=== PATIENT | male | born 1985 | race Caucasian/White ===

== ENCOUNTER 2016-11-26 16:52 | Emergency (ER) | payer BC, OTHER ==
[2016-11-26 16:59] VITALS: BMI 31.4
--- NOTE | 2016-11-26 17:16 | DR.GENAD ---
HPI - PCP Primary Care Physician: Asif - Complaint/Symptoms Chief Complaint Doctors Comments: Patient states that he has a history of hypertension and was on medication for two years and was taken off. He BP has bween in the 140s systolic and his pcp took him off medication. Recently had BP checked and it was 170 systolic and today systolic is 200. He denies alcohol use but dips. He wears glasses and vision has not changed. Last eye exam was two months ago. Today admits to a headache. Chief Complaint:: Pt states he has high blood pressure but is not on any medication and he is also c/o headache. - Source History Provided: Patient - Mode of Arrival Mode of Arrival: Ambulatory - Timing Onset of Chief Complaint: 11/26/16 PMH - PMH Past Medical History: Yes Past Medical History: Gout Past Surgical History: No Surgical History: No History - Family History History of Family Medical Conditions: Yes Family Medical History: [place] - Social History Does patient currently use any type of tobacco product: Yes Have you used tobacco products in the last 12 months: Yes Type of Tobacco Use: Smokeless Does any household member use tobacco: No Alcohol Use: None Do you use any recreational Drugs:: No Lives With: Family Lives Where: Home - infectious screening In the last 2 months have you had wt loss of >10#?: NO Have you had fever, night sweats or hemotysis?: No Have you traveled outside the country in the last 6 months?: No Isolation: Standard ROS - Review of Systems Constitutional: No Symptoms Reported Eyes: No Symptoms Reported ENTM: No Symptoms Reported Respiratoy: No Symptoms Reported Cardiovascular: No Symptoms Reported Gastrointestinal/Abdominal: No Symptoms Reported Genitourinary: No Symptoms Reported Neurological: No Symptoms Reported Musculoskeletal: No Symptoms Reported Integumentary: No Symptoms Reported Hematologic/Lymphatic: No Symptoms Reported Endocrine: No Symptoms Reported Psychiatric: No Symptoms Reported All Other Systems: Reviewed and Negative PE - Vital Signs Vitals: Temperature 98.2 F Pulse Rate [Left Brachial] 72 Pulse Rate 83 Respiratory Rate 18 Blood Pressure [Left Arm] 159/94 Blood Pressure 187/113 O2 Sat by Pulse Oximetry 98 - General Limitations: No Limitations General Appearance: Alert, In No Apparent Distress - Head Head Exam: Normal Inspection, Atraumatic - Eyes Eye exam: Normal Appearance, PERRL, EOMI - ENT ENT Exam: Normal Exam, Normal Oropharynx TM/Canal Exam: Bilateral Normal Nose Exam: Normal Nose Exam Mouth Exam: Normal Inspection Throat Exam: Normal Inspection - Neck Neck Exam: Normal Inspection - Chest Chest Inspection: Normal Inspection - Respiratory Respiratory Exam: Normal Lung Sounds Bilat Respiratory Exam: Bilateral Clear to Auscultation - Cardiovascular Cardiovascular Exam: Regular Rate, Normal Rhythm - Abdominal Exam Abdominal Exam: Normal Inspection, Normal Bowel Sounds Abdominal Tenderness: negative: RUQ, RLQ, LUQ, LLQ, Epigastrium, Suprapubic, Diffuse, Mild, Moderate, Severe, Other - Extremities Extremities Exam: Normal Inspection - Back Back Exam: Normal Inspection - Neurologic Neurological Exam: Alert, Oriented X3, CN II-XII Intact - Psychiatric Psychiatric Exam: Normal Affect - Skin Skin Exam: Warm, Intact Course - Treatment Treatment: Clonidine 0.2mg decreased to 159/94 - Reevaluation 1st: Improved - Diagnosis Discharge Problem: Hypertensive urgency - Discharge Plan Condition: Stable - Follow ups/Referrals Follow ups/Referrals: Agusto Gold [Primary Care Provider] - 3 days - Instructions
[2016-11-26] MEDS ORDERED: CATAPRES TAB 0.2 MG PO ONE (17:17)
[2016-11-26] MEDS ORDERED: CATAPRES TAB 0.2 MG ONE (17:18)
[2016-11-26 17:55] VITALS: BP 159/94
== END 2016-11-26 18:05 | disposition home or self-care (01) ==
LOC: ER 17:03
DX: I16.0 Hypertensive urgency (principal)
CPT/HCPCS: 99282

== ENCOUNTER 2020-06-07 15:22 | Inpatient (IN) ==
[2020-06-07 15:50] VITALS: BMI 30.8
--- NOTE | 2020-06-07 15:56 | DR.URIAD ---
HPI Time Seen Time Seen by Provider: 06/07/20 15:54 PCP Primary Care Physician: Rebecca Monroe Complaint Chief Complaint:: Patient was diagnosed with Covid last Thursday. The past three days his oxygen has been dropping. He has a home meter, and states that his oxygen has been in the upper 80s even at rest. He states that it became very difficult to breath today, so he called EMS. Source History Provided: Patient Mode of Arrival Mode of Arrival: Stretcher Timing Onset of Chief Complaint: 06/07/20 PMH PMH Past Medical History: Yes Past Medical History: Gout and Hypertension Past Surgical History: No Surgical History: No History Family History History of Family Medical Conditions: Yes Family Medical History: [place] Social History Does patient currently use any type of tobacco product: No Have you used tobacco products in the last 12 months: No Type of Tobacco Use: None Does any household member use tobacco: No Alcohol Use: None Do you use any recreational Drugs:: No Lives With: Family Lives Where: Home Infectious screening In the last 2 months have you had wt loss of >10#?: NO Have you had fever, night sweats or hemotysis?: No Have you traveled outside the country in the last 6 months?: No Isolation: Droplet PE Vital Signs Vitals: Temperature 100.1 F Pulse Rate 80 Respiratory Rate 22 Blood Pressure [Left Arm] 159/94 Blood Pressure 123/81 O2 Sat by Pulse Oximetry 96 ROR Labs Reviewed Result Diagrams: 06/07/20 16:44 06/07/20 16:44 Laboratory: WBC 9.7 X10^3/uL (3.6-10.0) 06/07/20 16:44 RBC 4.66 X10^6/uL (4.7-6.0) L 06/07/20 16:44 Hgb 15.1 g/dL (13.5-18.0) 06/07/20 16:44 Hct 43.9 % (42.0-54.0) 06/07/20 16:44 MCV 94.4 fL (80.0-100.0) 06/07/20 16:44 MCH 32.3 pg (27.0-34.0) 06/07/20 16:44 MCHC 34.3 g/dL (33.0-35.0) 06/07/20 16:44 RDW 13.2 % (11.6-16.5) 06/07/20 16:44 Plt Count 238 X10^3/uL (150.0-450.0) 06/07/20 16:44 MPV 6.5 fL (7.4-11.0) L 06/07/20 16:44 Neut % (Auto) 76.1 % (42.0-75.0) H 06/07/20 16:44 Lymph % (Auto) 14.9 % (21.0-51.0) L 06/07/20 16:44 [place] % (Auto) 7.9 % (0.0-13.0) 06/07/20 16:44 Eos % (Auto) 0.7 % (0.9-2.9) L 06/07/20 16:44 Baso % (Auto) 0.4 % (0.2-1.0) 06/07/20 16:44 Neut # (Auto) 7.4 x10^3/uL (2.2-4.8) H 06/07/20 16:44 Lymph # (Auto) 1.4 X10^3/uL (1.3-2.9) 06/07/20 16:44 [place] # (Auto) 0.8 x10^3/uL (0.3-0.8) 06/07/20 16:44 Eos # (Auto) 0.1 x10^3/uL (0.0-0.2) 06/07/20 16:44 Baso # (Auto) 0.0 X10^3/uL (0.0-0.1) 06/07/20 16:44 Absolute Nucleated RBC 0.1 /100WBC 06/07/20 16:44 Sample Site Left radial 06/07/20 18:11 ABG pH 7.520 (7.35-7.45) H 06/07/20 18:11 ABG pCO2 29.0 mmHg (35.0-45.0) L 06/07/20 18:11 ABG pO2 124.0 mmHg (80.0-100.0) H 06/07/20 18:11 ABG HCO3 23.7 mmol/L (22-26) 06/07/20 18:11 ABG O2 Saturation 99.0 % (90-100) 06/07/20 18:11 ABG Base Excess 1.6 mmol/L (-2.0-2.0) 06/07/20 18:11 Juan José Test Pos 06/07/20 18:11 A-a Gradient -11.0 mmHg 06/07/20 18:11 FiO2 21.0 06/07/20 18:11 Blood Gas Comments Jhoana well cb 06/07/20 18:11 Sodium 136 mmol/L (136-145) 06/07/20 16:44 Corrected Sodium TNP 06/07/20 16:44 Potassium 4.6 mmol/L (3.5-5.1) 06/07/20 16:44 Chloride 98 mmol/L (98-107) 06/07/20 16:44 Carbon Dioxide 27.0 mmol/L (21-32) 06/07/20 16:44 BUN 24 mg/dL (7-18) H 06/07/20 16:44 Creatinine 1.38 mg/dL (0.70-1.30) H 06/07/20 16:44 Est GFR (MDRD) Af Amer > 60 (>60) 06/07/20 16:44 Est GFR (MDRD) Non-Af > 60 (>60) 06/07/20 16:44 Glucose 100 mg/dL (65-99) H 06/07/20 16:44 Calcium 9.4 mg/dL (8.5-10.1) 06/07/20 16:44 Corrected Calcium 10.2 mg/dL (8.5-10.1) H 06/07/20 16:44 Ferritin 1940 ng/mL (26-388) H 06/07/20 16:44 Total Bilirubin 0.70 mg/dL (0.2-1.0) 06/07/20 16:44 AST 28 Units/L (15-37) 06/07/20 16:44 ALT 71 Units/L (12-78) 06/07/20 16:44 Alkaline Phosphatase 58 Units/L (46-116) 06/07/20 16:44 Total Protein 8.2 g/dL (6.4-8.2) 06/07/20 16:44 Albumin 3.0 g/dL (3.4-5.0) L 06/07/20 16:44 Globulin 5.2 g/dL (2.5-4.5) H 06/07/20 16:44 Albumin/Globulin Ratio 0.6 Ratio (1.1-2.1) L 06/07/20 16:44 Opioid Opioid Risk Tool Total: 0 Total Score Risk Category: Low Risk Copyright: Jerrod SMITH predicting aberrant behaviors Instructions Forms: Precautions for COVID19 Patient Portal Social Distancing
[2020-06-07 16:59] LABS: BASOPHILS % (AUTO) 0.4 % (0.2-1.0); EOSINOPHILS # (AUTO) 0.1 x10^3/uL (0.0-0.2); EOSINOPHILS % (AUTO) 0.7 % (0.9-2.9); HEMATOCRIT 43.9 % (42.0-54.0); HEMOGLOBIN 15.1 g/dL (13.5-18.0); LYMPHOCYTES # (AUTO) 1.4 X10^3/uL (1.3-2.9); LYMPHOCYTES % (AUTO) 14.9 % (21.0-51.0); MEAN CORPUSCULAR HEMOGLOBIN 32.3 pg (27.0-34.0); MEAN CORPUSCULAR HGB CONC 34.3 g/dL (33.0-35.0); MEAN CORPUSCULAR VOLUME 94.4 fL (80.0-100.0); MEAN PLATELET VOLUME 6.5 fL (7.4-11.0); MONOCYTES # (AUTO) 0.8 x10^3/uL (0.3-0.8); MONOCYTES % (AUTO) 7.9 % (0.0-13.0); NEUTROPHILS # (AUTO) 7.4 x10^3/uL (2.2-4.8); NEUTROPHILS % (AUTO) 76.1 % (42.0-75.0); PLATELET COUNT 238 X10^3/uL (150.0-450.0); RED BLOOD COUNT 4.66 X10^6/uL (4.7-6.0); RED CELL DISTRIBUTION WIDTH 13.2 % (11.6-16.5); WHITE BLOOD COUNT 9.7 X10^3/uL (3.6-10.0)
--- NOTE | 2020-06-07 17:08 | RAD ---
HISTORYSOB, COVID POSITIVESTUDYCHEST, 1 VIEWCOMPARISONNoneFINDINGSThe heart is mildly enlarged. The pulmonary vessels are slightly prominent centrally. There are some hazy perihilar and bibasilar opacities. No effusion is seen.IMPRESSIONMild cardiomegaly and minimal central pulmonary congestion.Hazy perihilar and bibasilar infiltrates which probably represents multisegmental bronchopneumonia.Electronically signed by: YADIRA HURTADO (Jun 07, 2020 17:06:46)
[2020-06-07] MEDS ORDERED: DECADRON INJ ONE (17:19)
[2020-06-07] MEDS ORDERED: TORADOL 30 MG VIAL ONE (17:20)
[2020-06-07] MEDS: TORADOL 30 MG VIAL IVP ONE (17:26)
[2020-06-07] MEDS: DECADRON INJ IV ONE (17:26)
[2020-06-07] MEDS: NS 1000 ML 1,000 ML IV SCH (17:28)
[2020-06-07] MEDS ORDERED: NS 1000 ML 1,000 ML ONE (17:30)
[2020-06-07 17:54] LABS: ALANINE AMINOTRANSFERASE 71 Units/L (12-78); ALKALINE PHOSPHATASE 58 Units/L (46-116); ASPARTATE AMINO TRANSFERASE 28 Units/L (15-37); BLOOD UREA NITROGEN 24 mg/dL (7-18); CALCIUM 9.4 mg/dL (8.5-10.1); CHLORIDE 98 mmol/L (98-107); COR CA(FOR HYPOALB) 10.2 mg/dL (8.5-10.1); CREATININE 1.38 mg/dL (0.70-1.30); SODIUM 136 mmol/L (136-145); TOTAL PROTEIN 8.2 g/dL (6.4-8.2); eGFR NON BLACK RACES > 60 (>60)
[2020-06-07 18:19] LABS: ABG ALLEN TEST POS; ABG BASE EXCESS 1.6 mmol/L (-2.0-2.0); ABG HCO3 23.7 mmol/L (22-26)
[2020-06-07] MEDS ORDERED: LEVOPHED INJ 8 MG in D5W 250 ML IV 242 ML IV PRN (18:30)
[2020-06-07] MEDS ORDERED: ROCEPHIN 1 GRAM IV PREMIX 1 G/50 ML IV.SOLN. IV ONE (19:32)
[2020-06-07] MEDS: ROCEPHIN 1 GRAM IV PREMIX 1 G/50 ML IV.SOLN. IV SCH (19:37)
[2020-06-07] MEDS ORDERED: REMDESIVIR 200 MG in NS 250 ML IV 250 ML IV SCH (20:00)
[2020-06-07] MEDS: DUONEB 0.5 MG/3 MG (3 mL) NEB SCH (22:55)
[2020-06-07] MEDS: PULMICORT NEB TX 0.5 MG NEB SCH (22:55)
[2020-06-08] MEDS ORDERED: ZOSYN VIAL 3.375 GRAMS IV ONE (01:00)
[2020-06-08] MEDS ORDERED: REMDESIVIR IV ONE (01:00)
[2020-06-08] MEDS ORDERED: NS 100 ML IV 100 ML IV ONE (01:03)
[2020-06-08] MEDS ORDERED: NS 100 ML IV + SPIKE MINIBAG* 100 ML IV ONE (01:06)
[2020-06-08] MEDS: ASCORBIC ACID INJ MULTI-DOSE VIAL 1,500 MG in NS 100 ML IV 100 ML IV SCH ×3 (01:59→09:12)
[2020-06-08] MEDS: ROBITUSSIN DM PO SCH ×5 (02:00→21:30)
[2020-06-08] MEDS: ZINC SULFATE PO SCH ×3 (02:00→21:30)
[2020-06-08] MEDS: LOVENOX INJ 30 MG SYR SC SCH ×3 (02:00→21:30)
[2020-06-08] MEDS: ZOSYN VIAL 3.375 GRAMS 3.375 G in NS 100 ML IV + SPIKE MINIBAG* 100 ML IV SCH ×4 (02:01→21:30)
[2020-06-08] MEDS: NS 1000 ML 1,000 ML IV SCH ×4 (03:30→21:52)
[2020-06-08 06:02] LABS: ALANINE AMINOTRANSFERASE 74 Units/L (12-78); ALBUMIN 2.5 g/dL (3.4-5.0); ALKALINE PHOSPHATASE 57 Units/L (46-116); ASPARTATE AMINO TRANSFERASE 25 Units/L (15-37); BLOOD UREA NITROGEN 29 mg/dL (7-18); CARBON DIOXIDE 25.1 mmol/L (21-32); CHLORIDE 102 mmol/L (98-107); COR CA(FOR HYPOALB) 10.2 mg/dL (8.5-10.1); COR NA(FOR HYPERGLY) 141 mmol/L (136-145); CREATININE 1.28 mg/dL (0.70-1.30); SODIUM 139 mmol/L (136-145); TOTAL PROTEIN 7.4 g/dL (6.4-8.2); eGFR NON BLACK RACES > 60 (>60)
[2020-06-08 06:06] LABS: BASOPHILS % (AUTO) 0.2 % (0.2-1.0); EOSINOPHILS % (AUTO) 0.1 % (0.9-2.9); HEMATOCRIT 38.1 % (42.0-54.0); HEMOGLOBIN 13.5 g/dL (13.5-18.0); LYMPHOCYTES # (AUTO) 0.8 X10^3/uL (1.3-2.9); MEAN CORPUSCULAR HGB CONC 35.4 g/dL (33.0-35.0); MEAN PLATELET VOLUME 6.6 fL (7.4-11.0); MONOCYTES # (AUTO) 0.4 x10^3/uL (0.3-0.8); MONOCYTES % (AUTO) 6.9 % (0.0-13.0); NEUTROPHILS # (AUTO) 4.3 x10^3/uL (2.2-4.8); NEUTROPHILS % (AUTO) 78.8 % (42.0-75.0); PLATELET COUNT 220 X10^3/uL (150.0-450.0); RED BLOOD COUNT 3.97 X10^6/uL (4.7-6.0); WHITE BLOOD COUNT 5.4 X10^3/uL (3.6-10.0)
[2020-06-08 06:22] LABS: ABG BASE EXCESS -1.1 mmol/L (-2.0-2.0); ABG HCO3 22.2 mmol/L (22-26)
[2020-06-08 06:23] LABS: ABG ALLEN TEST POS
[2020-06-08] MEDS: DUONEB 0.5 MG/3 MG (3 mL) NEB SCH ×3 (06:24→21:45)
[2020-06-08] MEDS ORDERED: VITAMIN D (1.25MG) PO SCH (09:00)
[2020-06-08] MEDS ORDERED: VITAMIN A PO SCH (09:00)
[2020-06-08] MEDS ORDERED: INVANZ INJ 1 GM VIAL 1 GM in NS 100 ML IV + SPIKE MINIBAG* 100 ML IV SCH (09:00)
[2020-06-08] MEDS ORDERED: DECADRON TAB PO SCH (09:00)
[2020-06-08] MEDS: VSL#3 PO SCH (09:15)
[2020-06-08] MEDS: TRICOR TAB 160 MG PO SCH (09:16)
[2020-06-08] MEDS: PULMICORT NEB TX 0.5 MG NEB SCH ×2 (09:40→21:45)
[2020-06-08] MEDS: ROCEPHIN 1 GRAM IV PREMIX 1 G/50 ML IV.SOLN. IV SCH (10:00)
[2020-06-08] MEDS: REMDESIVIR 100 MG in NS 250 ML IV 250 ML IV SCH (10:17)
--- NOTE | 2020-06-08 10:23 | DR.H&P ---
H&P - History & Physical for Day of: H&P Date: 06/07/20 - Chief Complaint Chief Complaint: FEVER, COUGH, SOB, WEAKNESS, HYPOXIA - History of Present Illness History of Present Illness: IS A 35 YEAR OLD PATIENT OF [employer]. HE PRESENTED TO THE ER WITH COMPLAINTS OF FEVER, SHORTNESS OF BREATH, NON- PRODUCTIVE COUGH, HYPOXIA, AND WEAKNESS. HE REPORTS THAT HIS OXYGEN SATURATIONS AT HOME HAVE BEEN AROUND 87-90% ON ROOM AIR. HE TESTED POSITIVE FOR COVID-19 ON 05/28/20. HE WAS TREATED WITH A Z-PACK AND A MEDROL DOSEPACK LAST WEEK, BUT DENIES IMPROVEMENT IN SYMPTOMS DESPITE COMPLIANCE WITH MEDICATIONS. AUSCULTATION OF LUNG DALY REVEALED SCATTERED WHEEZING. ON ARRIVAL, HIS VITALS WERE 100.1-80-18-90%RA-123/81. LABS WERE OBTAINED. ABNORMAL LAB VALUES INCLUDED THE FOLLOWING: RBC 4.66, BUN 24, CREATININE 1.38, GLUCOSE 100, FERRITIN 1940, ALBUMIN 3.0, GLOBULIN 5.2. BLOOD CULTURES WERE SET UP. A CHEST XRAY WAS OBTAINED AND REVEALED: Mild cardiomegaly and minimal central pulmonary congestion. Hazy perihilar and bibasilar infiltrates which probably represents multisegmental bronchopneumonia. HE WAS GIVEN ROCEPHIN 1G IV X 1, DECADRON 6MG IV X 1, AND TORADOL 30MG IV X 1 IN THE ER. HE DENIED IMPROVEMENT IN SYMPTOMS. HE WAS ADMI TTED FOR FURTHER EVALUATION AND TREATMENT OF PNEUMONIA DUE TO COVID-19 AND HYPOXIA. HE WAS STARTED ON NS AT 50 ML/HR, LEVAQUIN 500MG IV DAILY, ZOSYN 3.375G IV TID, SOLU-MEDROL 80MG IV Q8H, REMDESIVIR 200MG IV X 1 DOSE, THEN 100MG IV DAILY, ROBITUSSIN DM 10ML PO QID, TUSSIONEX 5ML PO Q12H PRN, LOVENOX 30MG SC BID, DUONEBS TID, PULMICORT NEBS BID, TRICOR 160MG PO DAILY, AND ZINC 220MG PO BID. OTHERWISE, WE PLAN TO FOLLOW UP WITH AM LABS AND CHEST XRAY AND CONTINUE TO MONITOR. TIME SPENT ON CLINICAL ASSESSMENT, REVIEWING LABS AND IMAGING, DECISION MAKING, AND DOCUMENTATION GREATER THAN 75 MINUTES. - Past Medical History Past Medical History: Hypertension, Gout - Past Surgical History Surgical History: No History - Family History Family Medical History: Diabetes Mellitus, Heart Failure - Social History Does patient currently use any type of tobacco product: No Have you used tobacco products in the last 12 months: No Type of Tobacco Use: None Does any household member use tobacco: No Alcohol Use: None Drug Use: None - Medications Home Medications: No Known Drug Allergies Allergy (Verified 06/07/20 15:23) CONTINUE taking the following medications allopurinol 300 mg PO BID 06/08/20 [History] diphenoxylate-atropine 1 tab PO TID PRN 06/08/20 [History] lisinopril 20 mg PO DAILY 06/08/20 [History] ondansetron HCl 4 mg PO Q6H PRN 06/08/20 [History] - Review of Systems Constitutional: Fever, Weakness Eyes: No Symptoms Reported ENT: No Symptoms Reported Respiratory: See HPI, Cough, Shortness of Breath, Wheezing Cardiovascular: No Symptoms Reported Gastrointestinal: No Symptoms Reported Genitourinary: No Symptoms Reported Musculoskeletal: No Symptoms Reported Skin: No Symptoms Reported Neurological: Weakness - Physical Exam Vital Signs: Temperature 97.5 F Pulse Rate [Apical] 69 Pulse Rate 52 Respiratory Rate 20 Blood Pressure [Left Arm] 123/68 Blood Pressure 126/65 O2 Sat by Pulse Oximetry 97 Oriented: Normal Eyes: Normal Ear: Normal Nose: Normal Throat: Normal Respiratory: Diminished Throughout, Wheezes Throughout Cardiovascular: Normal : Normal Auscultation: Bowel Sounds: Normal Palpation: Normal Tenderness: Normal Skin: Normal Musculoskeletal: Normal Psychiatric: Normal Mood Description: Calm Affect: Normal Speech Pattern: Clear - Assessment/Plan (1) Pneumonia Qualifiers: Aspiration pneumonia type: unspecified Laterality: bilateral Lung location: lower lobe of lung Status: Acute Plan: ADMIT, NS AT 50 ML/HR, LEVAQUIN 500MG IV DAILY, ZOSYN 3.375G IV TID, SOLU- MEDROL 80MG IV Q8H, REMDESIVIR 200MG IV X 1 DOSE, THEN 100MG IV DAILY, ROBITUSSIN DM 10ML PO QID, TUSSIONEX 5ML PO Q12H PRN, LOVENOX 30MG SC BID, DUONEBS TID, PULMICORT NEBS BID, TRICOR 160MG PO DAILY, AND ZINC 220MG PO BID (2) COVID-19 Status: Acute (3) Hypoxia Status: Acute - Allergies Allergies/Adverse Reactions: Allergies Allergy/AdvReac Type Severity Reaction Status Date / Time No Known Drug Allergies Allergy Verified 06/07/20 15:23
[2020-06-08 10:30] LABS: CKMB % 1.6 % (<4); CREATINE KINASE 61 Units/L (39-308); CREATINE KINASE MB < 1.0 ng/mL (0-4.0); TROPONIN I < 0.02 ng/mL (0-1.5)
[2020-06-08] MEDS ORDERED: LOMOTIL PO PRN (10:54)
[2020-06-08] MEDS ORDERED: ZESTRIL TAB 20 MG ONE (11:16)
[2020-06-08] MEDS: ZYLOPRIM PO SCH ×2 (11:25→21:30)
[2020-06-08] MEDS: LEVAQUIN PREMIX IV 500 MG 500 MG/100 ML BAG IV SCH (11:26)
[2020-06-08] MEDS: ZESTRIL TAB 20 MG PO SCH (11:26)
--- NOTE | 2020-06-08 12:28 | RAD ---
HISTORYSOBSTUDYCHEST, 1 [id number]/22/2020FINDINGSBorderline heart size. There is unchanged elevation of the right diap hragm. There are again seen patchy bibasal ground-glass radiopacities overall unchanged since prior s tudy. No effusion or pneumothorax.IMPRESSIONPersistent bibasal infiltrates with confluent areas and i nfiltrate at left midlung zone. No effusions or pneumothoraxElectronically signed by: Wanda Stroud (Oc t 2019 12:27:23)
[2020-06-08] MEDS ORDERED: ACTEMRA 400 MG in NS 100 ML IV 80 ML IV NR (12:30)
[2020-06-08 12:31] LABS: BILIRUBIN,URINE NEGATIVE (NEGATIVE); BLOOD/HEMOGLOBIN,URINE NEGATIVE (NEGATIVE); GLUCOSE, URINE NEGATIVE (NEGATIVE); KETONES,URINE NEGATIVE (NEGATIVE); LEUKOCYTE ESTERASE ,URINE NEGATIVE (NEGATIVE); NITRITES,URINE NEGATIVE (NEGATIVE); PROTEIN,URINE 2+ (NEGATIVE); UROBILINOGEN,URINE NORMAL (NORMAL)
[2020-06-08 12:43] LABS: APPEARANCE,URINE CLEAR (CLEAR); BACTERIA,URINE TRACE /HPF (NEGATIVE); COLOR,URINE YELLOW (YELLOW); RBC,URINE 0-2 /HPF (0-3); SQUAMOUS EPITHELIAL CELL,UR RARE /HPF (NEGATIVE)
[2020-06-08] MEDS ORDERED: SOLU-Medrol 40 MG VIAL ONE (12:57)
[2020-06-08] MEDS: SOLU-Medrol 40 MG VIAL IVP SCH ×2 (13:01→21:30)
[2020-06-09] MEDS: NS 1000 ML 1,000 ML IV SCH ×2 (05:13→21:17)
[2020-06-09 05:22] LABS: BASOPHILS % (AUTO) 0.1 % (0.2-1.0); HEMATOCRIT 40.1 % (42.0-54.0); HEMOGLOBIN 13.6 g/dL (13.5-18.0); LYMPHOCYTES # (AUTO) 0.9 X10^3/uL (1.3-2.9); LYMPHOCYTES % (AUTO) 6.8 % (21.0-51.0); MEAN CORPUSCULAR HEMOGLOBIN 32.1 pg (27.0-34.0); MEAN CORPUSCULAR HGB CONC 33.8 g/dL (33.0-35.0); MEAN CORPUSCULAR VOLUME 94.8 fL (80.0-100.0); MEAN PLATELET VOLUME 6.9 fL (7.4-11.0); MONOCYTES # (AUTO) 0.5 x10^3/uL (0.3-0.8); MONOCYTES % (AUTO) 3.5 % (0.0-13.0); NEUTROPHILS # (AUTO) 11.6 x10^3/uL (2.2-4.8); NEUTROPHILS % (AUTO) 89.6 % (42.0-75.0); PLATELET COUNT 285 X10^3/uL (150.0-450.0); RED BLOOD COUNT 4.23 X10^6/uL (4.7-6.0); RED CELL DISTRIBUTION WIDTH 13.2 % (11.6-16.5); WHITE BLOOD COUNT 12.9 X10^3/uL (3.6-10.0)
[2020-06-09] MEDS: SOLU-Medrol 40 MG VIAL IVP SCH ×3 (05:30→21:18)
[2020-06-09] MEDS: ZOSYN VIAL 3.375 GRAMS 3.375 G in NS 100 ML IV + SPIKE MINIBAG* 100 ML IV SCH ×3 (05:30→21:36)
[2020-06-09 05:37] LABS: ALANINE AMINOTRANSFERASE 87 Units/L (12-78); ALBUMIN 2.7 g/dL (3.4-5.0); ALKALINE PHOSPHATASE 74 Units/L (46-116); BLOOD UREA NITROGEN 19 mg/dL (7-18); CALCIUM 9.2 mg/dL (8.5-10.1); CARBON DIOXIDE 25.9 mmol/L (21-32); CHLORIDE 105 mmol/L (98-107); COR CA(FOR HYPOALB) 10.2 mg/dL (8.5-10.1); COR NA(FOR HYPERGLY) 142 mmol/L (136-145); CREATININE 1.24 mg/dL (0.70-1.30); SODIUM 141 mmol/L (136-145); TOTAL PROTEIN 7.9 g/dL (6.4-8.2); eGFR NON BLACK RACES > 60 (>60)
[2020-06-09 05:59] LABS: ASPARTATE AMINO TRANSFERASE 18 Units/L (15-37)
--- NOTE | 2020-06-09 06:13 | RAD ---
HISTORYSOB, PNEUMONIA, COVID-19STUDYCHEST, 1 [id number]/23/2020.TECHNIQUEAP view of the chestFINDINGSCardiac and mediastinal contours are stable. Improved left base airspace disease. Stable right base airspace disease. No large pleural effusion. No pneumothorax.IMPRESSIONImproved left base airspace disease. Otherwise stable.Electronically signed by: [place] Lindsay (Jun 09, 2020 06:12:00)
[2020-06-09] MEDS: DUONEB 0.5 MG/3 MG (3 mL) NEB SCH ×3 (06:36→21:10)
[2020-06-09] MEDS ORDERED: ZESTRIL TAB 20 MG ONE (08:41)
[2020-06-09] MEDS: ZESTRIL TAB 20 MG PO SCH (08:46)
[2020-06-09] MEDS: ROBITUSSIN DM PO SCH ×4 (08:46→21:18)
[2020-06-09] MEDS: LEVAQUIN PREMIX IV 500 MG 500 MG/100 ML BAG IV SCH (08:46)
[2020-06-09] MEDS: TRICOR TAB 160 MG PO SCH (08:47)
[2020-06-09] MEDS: ZYLOPRIM PO SCH ×2 (08:47→21:18)
[2020-06-09] MEDS: VITAMIN D3 125 mcg (5,000 UNITS) PO SCH (08:48)
[2020-06-09] MEDS: ZINC SULFATE PO SCH ×2 (08:48→21:19)
[2020-06-09] MEDS: LOVENOX INJ 30 MG SYR SC SCH ×2 (08:48→21:18)
[2020-06-09] MEDS: VSL#3 PO SCH (08:49)
[2020-06-09] MEDS ORDERED: VITAMIN A PO SCH (09:00)
[2020-06-09] MEDS: PULMICORT NEB TX 0.5 MG NEB SCH ×2 (09:34→21:10)
[2020-06-09] MEDS: REMDESIVIR 100 MG in NS 250 ML IV 250 ML IV SCH (11:13)
--- NOTE | 2020-06-09 11:18 | PCM.PROG ---
Progress Note Progress Note for Day of Date of Exam: 06/09/20 Subjective Subjective: PT IS A 35 Y/O M ADMITTED FOR COVID19 PNEUMONIA(POSITIVE 05/29). THIS MORNING HE REPORTS FEELING A LITTLE BETTER. HE IS CURRENTLY ON 3L NC SUPPLEMENTAL OXYGEN. LABS/IMAGING:WBC 12.9, HGB 13.6, PLT 285, NA 141, K 4.2, CR 1.24, GLUC 162, CRP 103>57, ECHO EF 60%, CXR:IMPROVED LEFT BASE AIRSPACE DISEASE, OTHERWISE STABLE. HIS TREATMENT COURSE INCLUDES:NS@50 ML/HR, LEVAQUIN 500MG IV DAILY, ZOSYN 3.375G IV TID, SOLU-MEDROL 80MG IV Q8H, REMDESIVIR 200MG IV X 1 DOSE, THEN 100MG IV DAILY, ROBITUSSIN DM 10ML PO QID, TUSSIONEX 5ML PO Q12H PRN, LOVENOX 30MG SC BID, DUONEBS TID, PULMICORT NEBS BID, TRICOR 160MG PO DAILY, AND ZINC 220MG PO BID. WILL CONTINUE TO WEAN OFF SUPPLEMENTAL O2 TOLERATED. CONTINUE TO MONITOR AND FOLLOW UP LABS/IMAGING IN THE MORNING. Past Medical Family Social History Past Med/Fam/Surg Hx: No changes since H&P Allergies: Allergies No Known Drug Allergies Allergy (Verified 06/07/20 15:23) Review of Systems ROS: No change since H&P Vital Signs and I&O's Vital Signs: Temperature 97.9 F Pulse Rate [Apical] 99 Pulse Rate 93 Respiratory Rate 20 Blood Pressure [Left Arm] 133/81 Blood Pressure 126/65 O2 Sat by Pulse Oximetry 99 Intake and Output: Intake & Output 06/06/20 06/07/20 06/08/20 06/09/20 23:59 23:59 23:59 23:59 Intake Total 120 / 120 4744 / 4744 802 / 802 Balance 120 / 120 4744 / 4744 802 / 802 Physical Exam Oriented: Normal Eyes: Normal Ear: Normal Nose: Normal Throat: Normal Respiratory: Diminished Cardiovascular: Normal : Normal Auscultation: Bowel Sounds: Normal Tenderness: Normal Skin: Normal Musculoskeletal: Normal Psychiatric: Normal Mood Description: Calm Affect: Normal Speech Pattern: Clear and Appropriate Laboratory and Diagnostics Result Diagrams: 06/09/20 04:54 06/09/20 04:54 Labs: 06/07/20 16:48 Blood Blood Culture - Preliminary 06/07/20 16:44 Blood Blood Culture - Preliminary Laboratory WBC 12.9 X10^3/uL (3.6-10.0) H 06/09/20 04:54 RBC 4.23 X10^6/uL (4.7-6.0) L 06/09/20 04:54 Hgb 13.6 g/dL (13.5-18.0) 06/09/20 04:54 Hct 40.1 % (42.0-54.0) L 06/09/20 04:54 MCV 94.8 fL (80.0-100.0) 06/09/20 04:54 MCH 32.1 pg (27.0-34.0) 06/09/20 04:54 MCHC 33.8 g/dL (33.0-35.0) 06/09/20 04:54 RDW 13.2 % (11.6-16.5) 06/09/20 04:54 Plt Count 285 X10^3/uL (150.0-450.0) 06/09/20 04:54 MPV 6.9 fL (7.4-11.0) L 06/09/20 04:54 Neut % (Auto) 89.6 % (42.0-75.0) H 06/09/20 04:54 Lymph % (Auto) 6.8 % (21.0-51.0) L 06/09/20 04:54 [place] % (Auto) 3.5 % (0.0-13.0) 06/09/20 04:54 Eos % (Auto) 0.0 % (0.9-2.9) L 06/09/20 04:54 Baso % (Auto) 0.1 % (0.2-1.0) L 06/09/20 04:54 Neut # (Auto) 11.6 x10^3/uL (2.2-4.8) H 06/09/20 04:54 Lymph # (Auto) 0.9 X10^3/uL (1.3-2.9) L 06/09/20 04:54 [place] # (Auto) 0.5 x10^3/uL (0.3-0.8) 06/09/20 04:54 Eos # (Auto) 0.0 x10^3/uL (0.0-0.2) 06/09/20 04:54 Baso # (Auto) 0.0 X10^3/uL (0.0-0.1) 06/09/20 04:54 Absolute Nucleated RBC 0.0 /100WBC 06/09/20 04:54 Sample Site [place] 06/08/20 06:19 ABG pH 7.450 (7.35-7.45) 06/08/20 06:19 ABG pCO2 32.0 mmHg (35.0-45.0) L 06/08/20 06:19 ABG pO2 103.0 mmHg (80.0-100.0) H 06/08/20 06:19 ABG HCO3 22.2 mmol/L (22-26) 06/08/20 06:19 ABG O2 Saturation 98.0 % (90-100) 06/08/20 06:19 ABG Base Excess -1.1 mmol/L (-2.0-2.0) 06/08/20 06:19 Juan José Test Pos 06/08/20 06:19 A-a Gradient 57.0 mmHg 06/08/20 06:19 FiO2 28.0 06/08/20 06:19 Blood Gas Comments Jhoana abg well-mtf 06/08/20 06:19 Sodium 141 mmol/L (136-145) 06/09/20 04:54 Corrected Sodium 142 mmol/L (136-145) 06/09/20 04:54 Potassium 4.2 mmol/L (3.5-5.1) 06/09/20 04:54 Chloride 105 mmol/L (98-107) 06/09/20 04:54 Carbon Dioxide 25.9 mmol/L (21-32) 06/09/20 04:54 BUN 19 mg/dL (7-18) H 06/09/20 04:54 Creatinine 1.24 mg/dL (0.70-1.30) 06/09/20 04:54 Est GFR (MDRD) Af Amer > 60 (>60) 06/09/20 04:54 Est GFR (MDRD) Non-Af > 60 (>60) 06/09/20 04:54 Glucose 162 mg/dL (65-99) H 06/09/20 04:54 Calcium 9.2 mg/dL (8.5-10.1) 06/09/20 04:54 Corrected Calcium 10.2 mg/dL (8.5-10.1) H 06/09/20 04:54 Ferritin 1958 ng/mL (26-388) H 06/09/20 04:54 Total Bilirubin 0.30 mg/dL (0.2-1.0) 06/09/20 04:54 AST 18 Units/L (15-37) 06/09/20 04:54 ALT 87 Units/L (12-78) H 06/09/20 04:54 Alkaline Phosphatase 74 Units/L (46-116) 06/09/20 04:54 Creatine Kinase 61 Units/L (39-308) 06/08/20 05:10 CK-MB (CK-2) < 1.0 ng/mL (0-4.0) 06/08/20 05:10 CK/CKMB % Calc 1.6 % (<4) 06/08/20 05:10 Troponin I < 0.02 ng/mL (0-1.5) 06/08/20 05:10 C-Reactive Protein 57.80 mg/L (0-3.0) H 06/09/20 04:54 B-Natriuretic Peptide 8.7 pg/mL (0-79) 06/08/20 05:10 Total Protein 7.9 g/dL (6.4-8.2) 06/09/20 04:54 Albumin 2.7 g/dL (3.4-5.0) L 06/09/20 04:54 Globulin 5.2 g/dL (2.5-4.5) H 06/09/20 04:54 Albumin/Globulin Ratio 0.5 Ratio (1.1-2.1) L 06/09/20 04:54 Specimen Type Clean catch urine 06/08/20 12:01 Urine Color Yellow (YELLOW) 06/08/20 12:01 Urine Appearance Clear (CLEAR) 06/08/20 12:01 Urine pH 5.0 (5.0 - 8.0) 06/08/20 12:01 Ur Specific [place] 1.020 (1.000-1.030) 06/08/20 12:01 Urine Protein 2+ (NEGATIVE) 06/08/20 12:01 Urine Glucose (UA) Negative (NEGATIVE) 06/08/20 12:01 Urine Ketones Negative (NEGATIVE) 06/08/20 12:01 Urine Occult Blood Negative (NEGATIVE) 06/08/20 12:01 Urine Nitrite Negative (NEGATIVE) 06/08/20 12:01 Urine Bilirubin Negative (NEGATIVE) 06/08/20 12:01 Urine Urobilinogen Normal (NORMAL) 06/08/20 12:01 Ur Leukocyte Esterase Negative (NEGATIVE) 06/08/20 12:01 Urine RBC 0-2 /HPF (0-3) 06/08/20 12:01 Urine WBC 0-2 /HPF (0-5) 06/08/20 12:01 Ur Squamous Epith Cells Rare /HPF (NEGATIVE) 06/08/20 12:01 Urine Bacteria Trace /HPF (NEGATIVE) 06/08/20 12:01 Ur Culture Indicated? No/not indicated 06/08/20 12:01 Plan (1) Pneumonia: Status: Acute Qualifiers: Aspiration pneumonia type: unspecified Laterality: bilateral Lung location: lower lobe of lung Plan: ADMIT, NS AT 50 ML/HR, LEVAQUIN 500MG IV DAILY, ZOSYN 3.375G IV TID, SOLU-MEDROL 80MG IV Q8H, REMDESIVIR 200MG IV X 1 DOSE, THEN 100MG IV DAILY, ROBITUSSIN DM 10ML PO QID, TUSSIONEX 5ML PO Q12H PRN, LOVENOX 30MG SC BID, DUONEBS TID, PULMICORT NEBS BID, TRICOR 160MG PO DAILY, AND ZINC 220MG PO BID (2) COVID-19: Status: Acute (3) Hypoxia: Status: Acute
[2020-06-09] MEDS: TUSSIONEX PENNKINETIC SUSP PO PRN (23:09)
[2020-06-10 05:21] LABS: BASOPHILS % (AUTO) 0.2 % (0.2-1.0); HEMATOCRIT 36.5 % (42.0-54.0); HEMOGLOBIN 12.4 g/dL (13.5-18.0); MEAN CORPUSCULAR HEMOGLOBIN 32.1 pg (27.0-34.0); MEAN CORPUSCULAR VOLUME 94.7 fL (80.0-100.0); MEAN PLATELET VOLUME 7.1 fL (7.4-11.0); MONOCYTES # (AUTO) 0.6 x10^3/uL (0.3-0.8); MONOCYTES % (AUTO) 3.8 % (0.0-13.0); NEUTROPHILS # (AUTO) 13.3 x10^3/uL (2.2-4.8); PLATELET COUNT 286 X10^3/uL (150.0-450.0); RED BLOOD COUNT 3.85 X10^6/uL (4.7-6.0); RED CELL DISTRIBUTION WIDTH 13.1 % (11.6-16.5)
[2020-06-10 05:29] LABS: ALANINE AMINOTRANSFERASE 87 Units/L (12-78); ALBUMIN 2.4 g/dL (3.4-5.0); ALKALINE PHOSPHATASE 63 Units/L (46-116); ASPARTATE AMINO TRANSFERASE 22 Units/L (15-37); BLOOD UREA NITROGEN 20 mg/dL (7-18); CALCIUM 8.7 mg/dL (8.5-10.1); CARBON DIOXIDE 26.2 mmol/L (21-32); CHLORIDE 107 mmol/L (98-107); COR NA(FOR HYPERGLY) 143 mmol/L (136-145); CREATININE 1.22 mg/dL (0.70-1.30); SODIUM 142 mmol/L (136-145); TOTAL PROTEIN 6.8 g/dL (6.4-8.2); eGFR NON BLACK RACES > 60 (>60)
[2020-06-10] MEDS: SOLU-Medrol 40 MG VIAL IVP SCH ×3 (05:45→21:00)
[2020-06-10] MEDS: ZOSYN VIAL 3.375 GRAMS 3.375 G in NS 100 ML IV + SPIKE MINIBAG* 100 ML IV SCH ×3 (05:45→21:01)
[2020-06-10] MEDS: DUONEB 0.5 MG/3 MG (3 mL) NEB SCH ×3 (06:02→20:55)
--- NOTE | 2020-06-10 06:43 | RAD ---
HISTORYSOB, PNEUMONIA, COVID-19STUDYCHEST, 1 [id number]/24/2020TECHNIQUEAP view of the chestFINDINGSCardiac and mediastinal contours appear within normal limits. No significant change in patchy bibasilar opacities. No definite pleural effusion or pneumothorax.IMPRESSIONNo significant change in patchy bibasilar opacities.Electronically signed by: [place] Lindsay (Jun 10, 2020 06:42:20)
[2020-06-10] MEDS ORDERED: ZESTRIL TAB 20 MG ONE (08:31)
[2020-06-10] MEDS: LOVENOX INJ 30 MG SYR SC SCH ×2 (09:26→20:57)
[2020-06-10] MEDS: ZINC SULFATE PO SCH ×2 (09:27→20:58)
[2020-06-10] MEDS: ROBITUSSIN DM PO SCH ×4 (09:27→20:58)
[2020-06-10] MEDS: REMDESIVIR 100 MG in NS 250 ML IV 250 ML IV SCH (09:27)
[2020-06-10] MEDS: TRICOR TAB 160 MG PO SCH (09:27)
[2020-06-10] MEDS: VITAMIN D3 125 mcg (5,000 UNITS) PO SCH (09:28)
[2020-06-10] MEDS: ZESTRIL TAB 20 MG PO SCH (09:28)
[2020-06-10] MEDS: ZYLOPRIM PO SCH ×2 (09:28→20:59)
[2020-06-10] MEDS: VSL#3 PO SCH (09:28)
[2020-06-10] MEDS: PULMICORT NEB TX 0.5 MG NEB SCH ×2 (09:48→20:55)
--- NOTE | 2020-06-10 10:13 | PCM.PROG ---
Progress Note Progress Note for Day of Date of Exam: 06/10/20 Subjective Subjective: PT IS A 35 Y/O M ADMITTED FOR COVID19 PNEUMONIA(POSITIVE 05/29). HE REPORTS DOING A LITTLE BETTER, STATES THAT WHEN HE AMBULATES AROUND THE ROOM HE STILL BECOMES SHORT OF BREATH. CURRENTLY ON 3L NC SUPPLEMENTAL OXYGEN. LABS/IMAGING:WBC 15, HGB 12.4, PLT 286, NA 142, K 4.6, CR 1.22, GLUC 135, CRP 57>22, ECHO EF 60%, CXR: NO SIGNIFICANT CHANGE. HIS TREATMENT COURSE INCLUDES:NS@50 ML/HR, LEVAQUIN 500MG IV DAILY, ZOSYN 3.375G IV TID, SOLU-MEDROL 80MG IV Q8H, REMDESIVIR 200MG IV X 1 DOSE, THEN 100MG IV DAILY, ROBITUSSIN DM 10ML PO QID, TUSSIONEX 5ML PO Q12H PRN, LOVENOX 30MG SC BID, DUONEBS TID, PULMICORT NEBS BID, TRICOR 160MG PO DAILY, AND ZINC 220MG PO BID. PLAN TO WEAN OFF SUPPLEMENTAL O2 TOLERATED. CONTINUE TO MONITOR AND FOLLOW UP LABS/IMAGING IN THE MORNING. Past Medical Family Social History Past Med/Fam/Surg Hx: No changes since H&P Allergies: Allergies No Known Drug Allergies Allergy (Verified 06/07/20 15:23) Review of Systems ROS: No change since H&P Vital Signs and I&O's Vital Signs: Temperature 98.2 F Pulse Rate [Apical] 55 Pulse Rate 74 Respiratory Rate 16 Blood Pressure [Left Arm] 118/72 Blood Pressure 126/65 O2 Sat by Pulse Oximetry 97 Intake and Output: Intake & Output 06/07/20 06/08/20 06/09/20 06/10/20 23:59 23:59 23:59 23:59 Intake Total 120 / 120 4744 / 4744 3290 / 3290 1050 / 1050 Balance 120 / 120 4744 / 4744 3290 / 3290 1050 / 1050 Physical Exam Oriented: Normal Eyes: Normal Ear: Normal Nose: Normal Throat: Normal Respiratory: Diminished Cardiovascular: Normal : Normal Auscultation: Bowel Sounds: Normal Tenderness: Normal Skin: Normal Musculoskeletal: Normal Psychiatric: Normal Mood Description: Calm Affect: Normal Speech Pattern: Clear and Appropriate Laboratory and Diagnostics Result Diagrams: 06/10/20 04:32 06/10/20 04:32 Labs: 06/09/20 23:13 Sputum - Expectorated Sputum - Final 06/07/20 16:48 Blood Blood Culture - Preliminary 06/07/20 16:44 Blood Blood Culture - Preliminary Laboratory WBC 15.0 X10^3/uL (3.6-10.0) H 06/10/20 04:32 RBC 3.85 X10^6/uL (4.7-6.0) L 06/10/20 04:32 Hgb 12.4 g/dL (13.5-18.0) L 06/10/20 04:32 Hct 36.5 % (42.0-54.0) L 06/10/20 04:32 MCV 94.7 fL (80.0-100.0) 06/10/20 04:32 MCH 32.1 pg (27.0-34.0) 06/10/20 04:32 MCHC 34.0 g/dL (33.0-35.0) 06/10/20 04:32 RDW 13.1 % (11.6-16.5) 06/10/20 04:32 Plt Count 286 X10^3/uL (150.0-450.0) 06/10/20 04:32 MPV 7.1 fL (7.4-11.0) L 06/10/20 04:32 Neut % (Auto) 89.0 % (42.0-75.0) H 06/10/20 04:32 Lymph % (Auto) 7.0 % (21.0-51.0) L 06/10/20 04:32 [place] % (Auto) 3.8 % (0.0-13.0) 06/10/20 04:32 Eos % (Auto) 0.0 % (0.9-2.9) L 06/10/20 04:32 Baso % (Auto) 0.2 % (0.2-1.0) 06/10/20 04:32 Neut # (Auto) 13.3 x10^3/uL (2.2-4.8) H 06/10/20 04:32 Lymph # (Auto) 1.0 X10^3/uL (1.3-2.9) L 06/10/20 04:32 [place] # (Auto) 0.6 x10^3/uL (0.3-0.8) 06/10/20 04:32 Eos # (Auto) 0.0 x10^3/uL (0.0-0.2) 06/10/20 04:32 Baso # (Auto) 0.0 X10^3/uL (0.0-0.1) 06/10/20 04:32 Absolute Nucleated RBC 0.0 /100WBC 06/10/20 04:32 Sample Site Lrad 06/08/20 06:19 ABG pH 7.450 (7.35-7.45) 06/08/20 06:19 ABG pCO2 32.0 mmHg (35.0-45.0) L 06/08/20 06:19 ABG pO2 103.0 mmHg (80.0-100.0) H 06/08/20 06:19 ABG HCO3 22.2 mmol/L (22-26) 06/08/20 06:19 ABG O2 Saturation 98.0 % (90-100) 06/08/20 06:19 ABG Base Excess -1.1 mmol/L (-2.0-2.0) 06/08/20 06:19 Juan José Test Pos 06/08/20 06:19 A-a Gradient 57.0 mmHg 06/08/20 06:19 FiO2 28.0 06/08/20 06:19 Blood Gas Comments Jhoana abg well-mtf 06/08/20 06:19 Sodium 142 mmol/L (136-145) 06/10/20 04:32 Corrected Sodium 143 mmol/L (136-145) 06/10/20 04:32 Potassium 4.6 mmol/L (3.5-5.1) 06/10/20 04:32 Chloride 107 mmol/L (98-107) 06/10/20 04:32 Carbon Dioxide 26.2 mmol/L (21-32) 06/10/20 04:32 BUN 20 mg/dL (7-18) H 06/10/20 04:32 Creatinine 1.22 mg/dL (0.70-1.30) 06/10/20 04:32 Est GFR (MDRD) Af Amer > 60 (>60) 06/10/20 04:32 Est GFR (MDRD) Non-Af > 60 (>60) 06/10/20 04:32 Glucose 135 mg/dL (65-99) H 06/10/20 04:32 Calcium 8.7 mg/dL (8.5-10.1) 06/10/20 04:32 Corrected Calcium 10.0 mg/dL (8.5-10.1) 06/10/20 04:32 Ferritin 1532 ng/mL (26-388) H 06/10/20 04:32 Total Bilirubin 0.40 mg/dL (0.2-1.0) 06/10/20 04:32 AST 22 Units/L (15-37) 06/10/20 04:32 ALT 87 Units/L (12-78) H 06/10/20 04:32 Alkaline Phosphatase 63 Units/L (46-116) 06/10/20 04:32 Creatine Kinase 61 Units/L (39-308) 06/08/20 05:10 CK-MB (CK-2) < 1.0 ng/mL (0-4.0) 06/08/20 05:10 CK/CKMB % Calc 1.6 % (<4) 06/08/20 05:10 Troponin I < 0.02 ng/mL (0-1.5) 06/08/20 05:10 C-Reactive Protein 22.00 mg/L (0-3.0) H 06/10/20 04:32 B-Natriuretic Peptide 8.7 pg/mL (0-79) 06/08/20 05:10 Total Protein 6.8 g/dL (6.4-8.2) 06/10/20 04:32 Albumin 2.4 g/dL (3.4-5.0) L 06/10/20 04:32 Globulin 4.4 g/dL (2.5-4.5) 06/10/20 04:32 Albumin/Globulin Ratio 0.5 Ratio (1.1-2.1) L 06/10/20 04:32 Specimen Type Clean catch urine 06/08/20 12:01 Urine Color Yellow (YELLOW) 06/08/20 12:01 Urine Appearance Clear (CLEAR) 06/08/20 12:01 Urine pH 5.0 (5.0 - 8.0) 06/08/20 12:01 Ur Specific [place] 1.020 (1.000-1.030) 06/08/20 12:01 Urine Protein 2+ (NEGATIVE) 06/08/20 12:01 Urine Glucose (UA) Negative (NEGATIVE) 06/08/20 12:01 Urine Ketones Negative (NEGATIVE) 06/08/20 12:01 Urine Occult Blood Negative (NEGATIVE) 06/08/20 12:01 Urine Nitrite Negative (NEGATIVE) 06/08/20 12:01 Urine Bilirubin Negative (NEGATIVE) 06/08/20 12:01 Urine Urobilinogen Normal (NORMAL) 06/08/20 12:01 Ur Leukocyte Esterase Negative (NEGATIVE) 06/08/20 12:01 Urine RBC 0-2 /HPF (0-3) 06/08/20 12:01 Urine WBC 0-2 /HPF (0-5) 06/08/20 12:01 Ur Squamous Epith Cells Rare /HPF (NEGATIVE) 06/08/20 12:01 Urine Bacteria Trace /HPF (NEGATIVE) 06/08/20 12:01 Ur Culture Indicated? No/not indicated 06/08/20 12:01 Plan (1) Pneumonia: Status: Acute Qualifiers: Aspiration pneumonia type: unspecified Laterality: bilateral Lung location: lower lobe of lung Plan: ADMIT, NS AT 50 ML/HR, LEVAQUIN 500MG IV DAILY, ZOSYN 3.375G IV TID, SOLU-MEDROL 80MG IV Q8H, REMDESIVIR 200MG IV X 1 DOSE, THEN 100MG IV DAILY, ROBITUSSIN DM 10ML PO QID, TUSSIONEX 5ML PO Q12H PRN, LOVENOX 30MG SC BID, DUONEBS TID, PULMICORT NEBS BID, TRICOR 160MG PO DAILY, AND ZINC 220MG PO BID (2) COVID-19: Status: Acute (3) Hypoxia: Status: Acute
[2020-06-10] MEDS: LEVAQUIN PREMIX IV 500 MG 500 MG/100 ML BAG IV SCH (10:58)
[2020-06-11] MEDS: NS 1000 ML 1,000 ML IV SCH ×2 (01:30→20:23)
[2020-06-11 04:37] LABS: ABG ALLEN TEST POS; ABG BASE EXCESS 4.9 mmol/L (-2.0-2.0); ABG HCO3 29.2 mmol/L (22-26)
[2020-06-11] MEDS: DUONEB 0.5 MG/3 MG (3 mL) NEB SCH ×3 (05:00→21:23)
[2020-06-11] MEDS: ZOSYN VIAL 3.375 GRAMS 3.375 G in NS 100 ML IV + SPIKE MINIBAG* 100 ML IV SCH ×3 (05:03→21:09)
[2020-06-11] MEDS: SOLU-Medrol 40 MG VIAL IVP SCH ×3 (05:03→21:08)
[2020-06-11 05:23] LABS: BASOPHILS % (AUTO) 0.1 % (0.2-1.0); HEMATOCRIT 40.8 % (42.0-54.0); HEMOGLOBIN 13.7 g/dL (13.5-18.0); LYMPHOCYTES # (AUTO) 1.5 X10^3/uL (1.3-2.9); LYMPHOCYTES % (AUTO) 8.9 % (21.0-51.0); MEAN CORPUSCULAR HEMOGLOBIN 32.1 pg (27.0-34.0); MEAN CORPUSCULAR HGB CONC 33.7 g/dL (33.0-35.0); MEAN CORPUSCULAR VOLUME 95.2 fL (80.0-100.0); MEAN PLATELET VOLUME 6.8 fL (7.4-11.0); MONOCYTES # (AUTO) 0.7 x10^3/uL (0.3-0.8); MONOCYTES % (AUTO) 4.2 % (0.0-13.0); NEUTROPHILS # (AUTO) 14.6 x10^3/uL (2.2-4.8); NEUTROPHILS % (AUTO) 86.8 % (42.0-75.0); PLATELET COUNT 331 X10^3/uL (150.0-450.0); RED BLOOD COUNT 4.29 X10^6/uL (4.7-6.0); WHITE BLOOD COUNT 16.8 X10^3/uL (3.6-10.0)
[2020-06-11 05:47] LABS: ALANINE AMINOTRANSFERASE 95 Units/L (12-78); ALBUMIN 2.7 g/dL (3.4-5.0); ALKALINE PHOSPHATASE 78 Units/L (46-116); ASPARTATE AMINO TRANSFERASE 18 Units/L (15-37); BLOOD UREA NITROGEN 26 mg/dL (7-18); CALCIUM 9.2 mg/dL (8.5-10.1); CARBON DIOXIDE 28.7 mmol/L (21-32); CHLORIDE 105 mmol/L (98-107); COR CA(FOR HYPOALB) 10.2 mg/dL (8.5-10.1); COR NA(FOR HYPERGLY) 140 mmol/L (136-145); CREATININE 1.44 mg/dL (0.70-1.30); SODIUM 140 mmol/L (136-145); TOTAL PROTEIN 7.5 g/dL (6.4-8.2); eGFR NON BLACK RACES 59 (>60)
--- NOTE | 2020-06-11 05:47 | RAD ---
HISTORYSOBSTUDYCHEST, 1 [id number] trachea is midline. The cardiac silhouette is mildly enlarged.. Patchy bibasilar opacities unchanged. The upper lung martin remain clear.. The bony thorax is unremarkable.IMPRESSIONPatchy bibasilar opacities; no significant change from 06/10/2020Electronically signed by: Eyal Vasquez (Jun 11, 2020 05:46:21)
[2020-06-11 05:55] LABS: PLATELET MORPHOLOGY COMMENT NORMAL (NORMAL)
[2020-06-11] MEDS: PULMICORT NEB TX 0.5 MG NEB SCH ×2 (08:15→21:24)
[2020-06-11] MEDS ORDERED: ZESTRIL TAB 20 MG ONE (08:28)
[2020-06-11] MEDS: ZYLOPRIM PO SCH ×2 (08:35→20:25)
[2020-06-11] MEDS: ROBITUSSIN DM PO SCH ×4 (08:35→20:24)
[2020-06-11] MEDS: ZINC SULFATE PO SCH ×2 (08:36→20:24)
[2020-06-11] MEDS: VSL#3 PO SCH (08:36)
[2020-06-11] MEDS: ZESTRIL TAB 20 MG PO SCH (08:36)
[2020-06-11] MEDS: TRICOR TAB 160 MG PO SCH (08:37)
[2020-06-11] MEDS: LOVENOX INJ 30 MG SYR SC SCH ×2 (08:37→20:24)
[2020-06-11] MEDS: REMDESIVIR 100 MG in NS 250 ML IV 250 ML IV SCH (08:37)
[2020-06-11] MEDS: VITAMIN D3 125 mcg (5,000 UNITS) PO SCH (08:37)
[2020-06-11] MEDS: LEVAQUIN PREMIX IV 500 MG 500 MG/100 ML BAG IV SCH (09:57)
--- NOTE | 2020-06-11 10:48 | PCM.PROG ---
Progress Note - Progress Note for Day of Date of Exam: 06/11/20 - Subjective Subjective: IS BEING TREATED FOR PNEUMONIA DUE TO COVID-19. TODAY, HE IS ALERT AND ORIENTED, LYING IN BED ON MORNING ROUNDS. HE CONTINUES WITH COMPLAINTS OF COUGH AND SHORTNESS OF BREATH. SHORTNESS OF BREATH IS WORSE WHILE AMBULATING. HE IS CURRENTLY UTILIZING OXYGEN VIA NASAL CANNULA AT 2 LI TERS/MINUTE. OXYGEN SATURATIONS THROUGHOUT THE NIGHT HAVE BEE 92-95% ON NASAL CANNULA. ON EXAMINATION, HEART IS REGULAR IN RATE AND RHYTHM. BILATERAL LUNGS ARE NOTED WITH SCATTERED WHEEZING THROUGHOUT. ABDOMEN IS ROUND, SOFT, AND NON- TENDER WITH NORMAL BOWEL SOUNDS NOTED IN ALL QUADRANTS. HIS VITALS THIS MORNING ARE: 98.7-92-18-93%NC-131/75. LABS WERE OBTAINED. ABNORMAL LAB VALUES INCLUDE THE FOLLOWING: WBC 16.8, RBC 4.29, HCT 40.8, BUN 26, CREATININE 1.44, GLUCOSE 116, FERRITIN 1456, ALT 95, CRP 13.40, ALBUMIN 2.7, GLOBULIN 4.8. ABG OBTAINED THIS MORNING AND REVEALED: PH 7.460, PC02 41, P02 88, HC03 29.2, 02 SAT 97, BASE EXCESS 4.9, FI02 28.0. BLOOD AND SPUTUM CULTURES ARE PENDING. A CHEST XRAY WAS OBTAINED THIS MORNING AND REVEALED: The trachea is midline. The cardiac silhouette is mildly enlarged. Patchy bibasilar opacities unchanged. The upper lung martin remain clear. The bony thorax is unremarkable. HE IS CURRENTLY RECEIVING NS AT 50 ML/HR, LEVAQUIN 500MG IV DAILY, ZOSYN 3.375G IV TID, SOLU- MEDROL 80MG IV Q8H, REMDESIVIR 100MG IV DAILY, ROBITUSSIN DM 10ML PO QID, TUSSIONEX 5ML PO Q12H PRN, LOVENOX 30MG SC BID, DUONEBS TID, PULMICORT NEBS BID, TRICOR 160MG PO DAILY, AND ZINC 220MG PO BID. WE WILL CONTINUE WITH CURRENT PLAN OF CARE TODAY. OTHERWISE, WE PLAN TO FOLLOW UP WITH AM LABS AND CHEST XRAY AND CONTINUE TO MONITOR. - Past Medical Family Social History Past Med/Fam/Surg Hx: No changes since H&P Allergies: Allergies No Known Drug Allergies Allergy (Verified 06/07/20 15:23) - Review of Systems ROS: No change since H&P - Vital Signs and I&O's Vital Signs: Temperature 98.7 F Pulse Rate [Apical] 92 Pulse Rate 78 Respiratory Rate 18 Blood Pressure [Left Arm] 131/75 Blood Pressure 126/65 O2 Sat by Pulse Oximetry 93 Intake and Output: Intake & Output 06/08/20 06/09/20 06/10/20 06/11/20 11:59 11:59 11:59 11:59 Intake Total 1354 / 1354 4312 / 4312 3538 / 3538 3085 / 3085 Balance 1354 / 1354 4312 / 4312 3538 / 3538 3085 / 3085 - Physical Exam Oriented: Normal Eyes: Normal Ear: Normal Nose: Normal Throat: Normal Respiratory: Diminished, Wheezes Cardiovascular: Normal : Normal Auscultation: Bowel Sounds: Normal Palpation: Normal Tenderness: Normal Skin: Normal Musculoskeletal: Normal Psychiatric: Normal Mood Description: Calm Affect: Normal Speech Pattern: Clear, Appropriate - Laboratory and Diagnostics Result Diagrams: 06/11/20 04:56 06/11/20 04:56 Labs: 06/09/20 23:13 Sputum - Expectorated Sputum Sputum Culture - Preliminary 06/09/20 23:13 Sputum - Expectorated Sputum - Final 06/07/20 16:48 Blood Blood Culture - Preliminary 06/07/20 16:44 Blood Blood Culture - Preliminary Laboratory WBC 16.8 X10^3/uL (3.6-10.0) H 06/11/20 04:56 RBC 4.29 X10^6/uL (4.7-6.0) L 06/11/20 04:56 Hgb 13.7 g/dL (13.5-18.0) 06/11/20 04:56 Hct 40.8 % (42.0-54.0) L 06/11/20 04:56 MCV 95.2 fL (80.0-100.0) 06/11/20 04:56 MCH 32.1 pg (27.0-34.0) 06/11/20 04:56 MCHC 33.7 g/dL (33.0-35.0) 06/11/20 04:56 RDW 13.0 % (11.6-16.5) 06/11/20 04:56 Plt Count 331 X10^3/uL (150.0-450.0) 06/11/20 04:56 Plt Count Comment Adequate (ADEQUATE) 06/11/20 04:56 MPV 6.8 fL (7.4-11.0) L 06/11/20 04:56 Neut % (Auto) 86.8 % (42.0-75.0) H 06/11/20 04:56 Lymph % (Auto) 8.9 % (21.0-51.0) L 06/11/20 04:56 [place] % (Auto) 4.2 % (0.0-13.0) 06/11/20 04:56 Eos % (Auto) 0.0 % (0.9-2.9) L 06/11/20 04:56 Baso % (Auto) 0.1 % (0.2-1.0) L 06/11/20 04:56 Neut # (Auto) 14.6 x10^3/uL (2.2-4.8) H 06/11/20 04:56 Lymph # (Auto) 1.5 X10^3/uL (1.3-2.9) 06/11/20 04:56 [place] # (Auto) 0.7 x10^3/uL (0.3-0.8) 06/11/20 04:56 Eos # (Auto) 0.0 x10^3/uL (0.0-0.2) 06/11/20 04:56 Baso # (Auto) 0.0 X10^3/uL (0.0-0.1) 06/11/20 04:56 Absolute Nucleated RBC 0.0 /100WBC 06/11/20 04:56 Total Counted 100 06/11/20 04:56 Neutrophils % (Manual) 83 % (39-76) H 06/11/20 04:56 Lymphocytes % (Manual) 13 % (13-43) 06/11/20 04:56 Monocytes % (Manual) 4 % (4-9) 06/11/20 04:56 Plt Morphology Comment Normal (NORMAL) 06/11/20 04:56 RBC Morphology Normal (NORMAL) 06/11/20 04:56 Sample Site Rr 06/11/20 05:00 ABG pH 7.460 (7.35-7.45) H 06/11/20 05:00 ABG pCO2 41.0 mmHg (35.0-45.0) 06/11/20 05:00 ABG pO2 88.0 mmHg (80.0-100.0) 06/11/20 05:00 ABG HCO3 29.2 mmol/L (22-26) H 06/11/20 05:00 ABG O2 Saturation 97.0 % (90-100) 06/11/20 05:00 ABG Base Excess 4.9 mmol/L (-2.0-2.0) H 06/11/20 05:00 Juan José Test Pos 06/11/20 05:00 A-a Gradient 60.0 mmHg 06/11/20 05:00 FiO2 28.0 06/11/20 05:00 Blood Gas Comments Jhoana well ae 06/11/20 05:00 Sodium 140 mmol/L (136-145) 06/11/20 04:56 Corrected Sodium 140 mmol/L (136-145) 06/11/20 04:56 Potassium 4.4 mmol/L (3.5-5.1) 06/11/20 04:56 Chloride 105 mmol/L (98-107) 06/11/20 04:56 Carbon Dioxide 28.7 mmol/L (21-32) 06/11/20 04:56 BUN 26 mg/dL (7-18) H 06/11/20 04:56 Creatinine 1.44 mg/dL (0.70-1.30) H 06/11/20 04:56 Est GFR (MDRD) Af Amer > 60 (>60) 06/11/20 04:56 Est GFR (MDRD) Non-Af 59 (>60) 06/11/20 04:56 Glucose 116 mg/dL (65-99) H 06/11/20 04:56 Calcium 9.2 mg/dL (8.5-10.1) 06/11/20 04:56 Corrected Calcium 10.2 mg/dL (8.5-10.1) H 06/11/20 04:56 Ferritin 1456 ng/mL (26-388) H 06/11/20 04:56 Total Bilirubin 0.40 mg/dL (0.2-1.0) 06/11/20 04:56 AST 18 Units/L (15-37) 06/11/20 04:56 ALT 95 Units/L (12-78) H 06/11/20 04:56 Alkaline Phosphatase 78 Units/L (46-116) 06/11/20 04:56 Creatine Kinase 61 Units/L (39-308) 06/08/20 05:10 CK-MB (CK-2) < 1.0 ng/mL (0-4.0) 06/08/20 05:10 CK/CKMB % Calc 1.6 % (<4) 06/08/20 05:10 Troponin I < 0.02 ng/mL (0-1.5) 06/08/20 05:10 C-Reactive Protein 13.40 mg/L (0-3.0) H 06/11/20 04:56 B-Natriuretic Peptide 8.7 pg/mL (0-79) 06/08/20 05:10 Total Protein 7.5 g/dL (6.4-8.2) 06/11/20 04:56 Albumin 2.7 g/dL (3.4-5.0) L 06/11/20 04:56 Globulin 4.8 g/dL (2.5-4.5) H 06/11/20 04:56 Albumin/Globulin Ratio 0.6 Ratio (1.1-2.1) L 06/11/20 04:56 Specimen Type Clean catch urine 06/08/20 12:01 Urine Color Yellow (YELLOW) 06/08/20 12:01 Urine Appearance Clear (CLEAR) 06/08/20 12:01 Urine pH 5.0 (5.0 - 8.0) 06/08/20 12:01 Ur Specific [place] 1.020 (1.000-1.030) 06/08/20 12:01 Urine Protein 2+ (NEGATIVE) 06/08/20 12:01 Urine Glucose (UA) Negative (NEGATIVE) 06/08/20 12:01 Urine Ketones Negative (NEGATIVE) 06/08/20 12:01 Urine Occult Blood Negative (NEGATIVE) 06/08/20 12: Urine Nitrite Negative (NEGATIVE) 06/08/20 12:01 Urine Bilirubin Negative (NEGATIVE) 06/08/20 12:01 Urine Urobilinogen Normal (NORMAL) 06/08/20 12:01 Ur Leukocyte Esterase Negative (NEGATIVE) 06/08/20 12:01 Urine RBC 0-2 /HPF (0-3) 06/08/20 12:01 Urine WBC 0-2 /HPF (0-5) 06/08/20 12:01 Ur Squamous Epith Cells Rare /HPF (NEGATIVE) 06/08/20 12:01 Urine Bacteria Trace /HPF (NEGATIVE) 06/08/20 12:01 Ur Culture Indicated? No/not indicated 06/08/20 12:01 - Plan (1) Pneumonia Status: Acute Qualifiers: Aspiration pneumonia type: unspecified Laterality: bilateral Lung location: lower lobe of lung Plan: NS AT 50 ML/HR, LEVAQUIN 500MG IV DAILY, ZOSYN 3.375G IV TID, SOLU-MEDROL 80MG IV Q8H, REMDESIVIR 100MG IV DAILY, ROBITUSSIN DM 10ML PO QID, TUSSIONEX 5ML PO Q12H PRN, LOVENOX 30MG SC BID, DUONEBS TID, PULMICORT NEBS BID, TRICOR 160MG PO DAILY, AND ZINC 220MG PO BID (2) COVID-19 Status: Acute (3) Hypoxia Status: Acute
[2020-06-12 05:14] LABS: BASOPHILS # (AUTO) 0.1 X10^3/uL (0.0-0.1); BASOPHILS % (AUTO) 0.3 % (0.2-1.0); HEMATOCRIT 40.3 % (42.0-54.0); HEMOGLOBIN 13.7 g/dL (13.5-18.0); LYMPHOCYTES # (AUTO) 1.6 X10^3/uL (1.3-2.9); LYMPHOCYTES % (AUTO) 8.3 % (21.0-51.0); MEAN CORPUSCULAR HEMOGLOBIN 32.1 pg (27.0-34.0); MEAN CORPUSCULAR HGB CONC 33.9 g/dL (33.0-35.0); MEAN CORPUSCULAR VOLUME 94.7 fL (80.0-100.0); MEAN PLATELET VOLUME 6.9 fL (7.4-11.0); MONOCYTES # (AUTO) 0.8 x10^3/uL (0.3-0.8); MONOCYTES % (AUTO) 3.9 % (0.0-13.0); NEUTROPHILS # (AUTO) 16.9 x10^3/uL (2.2-4.8); NEUTROPHILS % (AUTO) 87.5 % (42.0-75.0); PLATELET COUNT 338 X10^3/uL (150.0-450.0); RED BLOOD COUNT 4.26 X10^6/uL (4.7-6.0); RED CELL DISTRIBUTION WIDTH 13.1 % (11.6-16.5); WHITE BLOOD COUNT 19.3 X10^3/uL (3.6-10.0)
[2020-06-12] MEDS: SOLU-Medrol 40 MG VIAL IVP SCH ×2 (05:16→13:37)
[2020-06-12] MEDS: ZOSYN VIAL 3.375 GRAMS 3.375 G in NS 100 ML IV + SPIKE MINIBAG* 100 ML IV SCH ×2 (05:16→14:36)
[2020-06-12 05:28] LABS: ALANINE AMINOTRANSFERASE 79 Units/L (12-78); ALBUMIN 2.6 g/dL (3.4-5.0); ALKALINE PHOSPHATASE 86 Units/L (46-116); ASPARTATE AMINO TRANSFERASE 13 Units/L (15-37); BLOOD UREA NITROGEN 30 mg/dL (7-18); CARBON DIOXIDE 28.4 mmol/L (21-32); CHLORIDE 105 mmol/L (98-107); COR CA(FOR HYPOALB) 10.1 mg/dL (8.5-10.1); COR NA(FOR HYPERGLY) 139 mmol/L (136-145); CREATININE 1.35 mg/dL (0.70-1.30); SODIUM 139 mmol/L (136-145); TOTAL PROTEIN 7.2 g/dL (6.4-8.2); eGFR NON BLACK RACES > 60 (>60)
[2020-06-12 05:42] LABS: BAND NEUTROPHILS % 1 % (0-10)
[2020-06-12 05:43] LABS: PLATELET MORPHOLOGY COMMENT NORMAL (NORMAL)
[2020-06-12] MEDS: TUSSIONEX PENNKINETIC SUSP PO PRN (05:46)
--- NOTE | 2020-06-12 06:06 | RAD ---
HISTORYShortness of breathSTUDYChest AP [id number]/26/2020FINDINGSThe heart is upper limits normal in size. The kerline are normal. The lungs are mildly hypoinflated but free of acute infiltrates. There is some subsegmental atelectasis in the right lung base. No pleural effusions are identified. Bony thorax is unremarkable.IMPRESSIONNo change hypo inflationNo definite infiltratesSubsegmental atelectasis right lung baseElectronically signed by: GEORGI RHODES (Jun 12, 2020 06:04:49)
[2020-06-12] MEDS: DUONEB 0.5 MG/3 MG (3 mL) NEB SCH ×2 (06:24→14:30)
[2020-06-12] MEDS ORDERED: ZESTRIL TAB 20 MG ONE (08:20)
[2020-06-12] MEDS: LOVENOX INJ 30 MG SYR SC SCH (08:43)
[2020-06-12] MEDS: TRICOR TAB 160 MG PO SCH (08:44)
[2020-06-12] MEDS: ZESTRIL TAB 20 MG PO SCH (08:45)
[2020-06-12] MEDS: VSL#3 PO SCH (08:45)
[2020-06-12] MEDS: ZYLOPRIM PO SCH (08:45)
[2020-06-12] MEDS: ROBITUSSIN DM PO SCH ×2 (08:45→13:33)
[2020-06-12] MEDS: VITAMIN D3 125 mcg (5,000 UNITS) PO SCH (08:45)
[2020-06-12] MEDS: ZINC SULFATE PO SCH (08:46)
[2020-06-12] MEDS: PULMICORT NEB TX 0.5 MG NEB SCH (09:00)
[2020-06-12] MEDS: LEVAQUIN PREMIX IV 500 MG 500 MG/100 ML BAG IV SCH (09:38)
[2020-06-12 16:23] VITALS: BP 142/79
== END 2020-06-12 16:26 | disposition home or self-care (01) | DRG 177 ==
LOC: ICU 15:22 → ER 15:22 → OBSVTOIN 19:15 → ICU 22:07
PROVIDERS: ADMIT Internal Medicine; ATTEND Internal Medicine
DX: R09.02 Hypoxemia; R79.89 Other specified abnormal findings of blood chemistry; U07.1 COVID-19; R79.82 Elevated C-reactive protein (CRP); I10 Essential (primary) hypertension; J18.8 Other pneumonia, unspecified organism